=== PATIENT | male | born 1975 | race Caucasian/White ===

== ENCOUNTER 2017-06-17 22:39 | Inpatient (IN) ==
--- NOTE | 2017-06-17 23:18 | Emergency Department Note ---
Disposition Clinical Impression: Suicidal ideation Disposition: Admitted As Inpatient Condition: Fair Time of Disposition: 04:00 Psych HPI - General Chief Complaint: ED Psychiatric Symptoms Stated Complaint: SI Time Seen by Provider: 06/17/17 22:43 Source: patient Limitations: no limitations Nursing Notes Reviewed: Yes Vital Signs Reviewed: Yes - History of Present Illness HPI Narrative: 41-year-old male history of IV drug abuse, schizoaffective disorder, bipolar presents to the emergency department for suicidal ideation. He has been having thoughts of hurting self or past several days which includes shooting himself in the head or overdosing. He states he has been clean from IV drugs for several months now. Is currently undergoing Suboxone treatment since 2013. 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 He has required prior psychiatric hospitalizations in the past. He has had prior suicide attempts. States he is little paranoid believing other people are out to get him. This is confirmed with his who is in the examination room with him. He denies any auditory or visual hallucinations. Denies any alcohol use today. Denies any illicit drug use. He has been without any of his psychiatric medications for several years now due to his current Suboxone treatment. Denies any other complaints such as fever, recent illness, chest pain, shortness of breath, abdominal pain. Pt complaint: suicidal ideation - Related Data Home Medications Medication Instructions Recorded Confirmed Buprenorphine HCl/Naloxone HCl 1 tab SL BID 06/18/17 06/18/17 [Buprenorphin-Naloxon 8-2 mg Sl] Allergies Allergy/AdvReac Type Severity Reaction Status Date / Time Bee Pollen Allergy Anaphylaxis Verified 06/17/17 22:45 moxifloxacin [From Avelox] Allergy Vomiting Verified 06/17/17 22:45 acetaminophen AdvReac Itching Verified 06/17/17 22:45 [From Tylenol-Codeine #3] codeine AdvReac Itching Verified 06/17/17 22:45 All systems ED: reviewed and negative except as stated. Review of Systems: As Per HPI Constitutional: Denies: fever, chills Cardiovascular: Denies: chest pain Respiratory: Denies: cough, dyspnea Gastrointestinal: Denies: abdominal pain, nausea, vomiting Genitourinary: Denies: urgency, dysuria Musculoskeletal: Denies: back pain, neck pain Integumentary: Denies: rash, abrasion, lesions Neurological: Denies: headache Psychiatric: Reports: depression, suicidal thoughts, other (paranoia). Denies: anxiety, homicidal thoughts Endocrine: Denies: fatigue Past Medical History - Past Medical History Attestation: Yes The following information was validated with the patient. Source: patient Medical history: Reports: asthma, COPD Psychiatric history: Reports: anxiety, depression - Social History Smoking Status: Current every day smoker Alcohol use: Reports: rarely Drug use: Reports: none Physical Exam - General Limitations: no limitations General appearance: alert, in no apparent distress, anxious - Head Head exam: atraumatic, normocephalic, normal inspection - Eye Eye exam: Present: normal appearance, PERRL, EOMI - ENT ENT exam: normal exam, normal oropharynx, mucous membranes moist - Neck Neck exam: Present: normal inspection, full ROM, trachea midline - Chest Chest inspection: Present: normal inspection, symmetric chest wall rise - Respiratory Respiratory exam: Present: normal lung sounds bilaterally - Cardiovascular Cardiovascular exam: Present: regular rate, normal rhythm, normal heart sounds - Abdominal Exam Abdominal exam: Present: soft, Non-Tender, normal bowel sounds. Absent: tenderness, distention, guarding, rebound, rigidity - Extremities Exam Extremities exam: Present: normal inspection, full ROM, normal capillary refill. Absent: tenderness, pedal edema, calf tenderness - Back Exam Back exam: Present: normal inspection, full ROM. Absent: tenderness, vertebral tenderness - Neurological Exam Neurological exam: Present: alert, oriented X3, normal gait - Psychiatric Psychiatric exam: Present: depressed, anxious, flat affect, suicidal ideation - Skin Skin exam: Present: warm, dry, intact, normal color, other (Old track carrie in the right AC) Course Course Narrative: 41-year-old male history of IV drug abuse, currently undergoing Suboxone treatment presents for suicidal ideation. Thoughts of shooting himself in the head or overdosing for past several days. This is the 1st time his has heard of this. He has had prior suicide attempts. Prior psychiatric hospitalizations. He denies overdosing on any medications. Is otherwise in no acute distress. Exam is otherwise unremarkable. He is very cooperative and would like evaluation here. Will get medical clearance. - Reevaluation(s) Reevaluation #1: 1A called, medically cleared Time: 01:35 Reevaluation #2: [facility] psychiatry service consulted and evaluated patient in the emergency department and patient is being admitted to the [address] psychiatry unit. Vital Signs Temperature 98.1 F 06/17/17 22:39 Pulse Rate 91 06/17/17 22:39 Respiratory Rate 16 06/17/17 22:39 Blood Pressure 151/101 06/17/17 22:39 O2 Sat by Pulse Oximetry 97 06/17/17 22:39 Temperature 98.2 F 06/18/17 03:12 Pulse Rate 76 06/18/17 03:12 Respiratory Rate 16 06/18/17 03:12 Blood Pressure 125/86 06/18/17 03:12 O2 Sat by Pulse Oximetry 97 06/17/17 22:39 Oxygen Delivery Oxygen Delivery Room Air Psych - Lab Data Result diagrams: 06/18/17 00:50 06/18/17 00:50 Lab Results 06/17/17 06/17/17 06/17/17 Range/Units 23:00 23:15 23:18 WBC (4.3-11.1) K/mcL RBC (4.19-5.50) M/mcL Hgb (12.9-16.9) g/dL Hct (37.5-50.1) % MCV (83.0-100.0) fL MCH (28.0-33.3) pg MCHC (31.6-35.5) g/dL RDW (11.5-14.5) % Plt Count (140-400) K/mcL MPV (9.4-12.4) fL Immature Gran % (0-4) % Seg Neutrophils % % Lymphocytes % % Monocytes % % Eosinophils % % Basophils % % Neutrophils # (1.6-8.9) K/mcL Lymphocytes # (0.6-4.6) K/mcL Monocytes # (0.0-1.3) K/mcL Eosinophils # (0.0-0.6) K/mcL Basophils # (0.0-0.2) K/mcL Sodium (136-145) mEq/L Potassium (3.5-4.5) mEq/L Chloride (98-109) mEq/L Carbon Dioxide (19-29) mEq/L BUN (8-26) mg/dL Creatinine (0.72-1.25) mg/dL Est GFR ( Amer) (> 60) Est GFR (Non-Af Amer) (> 60) BUN/Creatinine Ratio (6-26) Glucose (70-99) mg/dL Calculated Osmolality (280-300) Calcium (8.6-10.8) mg/dL Urine Color Dark Yellow (Yellow) Urine Clarity Clear (Clear) Urine pH 6.5 (5.0-8.0) pH Units Ur Specific [place] > 1.030 H (1.010-1.025) Urine Protein Negative (Neg-Trace) mg/dL Urine Glucose (UA) Normal (Normal) mg/dL Urine Ketones Negative (Negative) mg/dL Urine Blood Negative (Negative) Urine Nitrite Negative (Negative) Urine Bilirubin Small H (Negative) Urine Urobilinogen Normal (Normal) mg/dL Ur Leukocyte Esterase Negative (Negative) Salicylates (15-30) mg/dL Urine Opiates Screen Negative (Rsfzgg=870) ng/mL Acetaminophen (10-30) mcg/mL Ur Barbiturates Screen Negative (Yyfmxt=977) ng/mL Ur Phencyclidine Scrn Negative (Cutoff=25) ng/mL Ur Amphetamines Screen Negative (Aaajpr=5891) ng/mL U Benzodiazepines Scrn Negative (Fiahql=088) ng/mL Urine Cocaine Screen Negative (Cutoff= 300) ng/mL U Marijuana (THC) Screen Negative (Cutoff = 50) ng/mL Ethyl Alcohol (0-10) mg/dL Specimen Rejected Volume 06/18/17 06/18/17 Range/Units 00:50 00:50 WBC 11.1 (4.3-11.1) K/mcL RBC 4.98 (4.19-5.50) M/mcL Hgb 15.2 (12.9-16.9) g/dL Hct 44.2 (37.5-50.1) % MCV 88.8 (83.0-100.0) fL MCH 30.5 (28.0-33.3) pg MCHC 34.4 (31.6-35.5) g/dL RDW 13.2 (11.5-14.5) % Plt Count 219 (140-400) K/mcL MPV 10.6 (9.4-12.4) fL Immature Gran % 0.7 (0-4) % Seg Neutrophils % 61.9 % Lymphocytes % 31.0 % Monocytes % 5.2 % Eosinophils % 0.9 % Basophils % 0.3 % Neutrophils # 6.8 (1.6-8.9) K/mcL Lymphocytes # 3.4 (0.6-4.6) K/mcL Monocytes # 0.6 (0.0-1.3) K/mcL Eosinophils # 0.1 (0.0-0.6) K/mcL Basophils # 0.0 (0.0-0.2) K/mcL Sodium 138 (136-145) mEq/L Potassium 3.6 (3.5-4.5) mEq/L Chloride 104 (98-109) mEq/L Carbon Dioxide 24 (19-29) mEq/L BUN 10 (8-26) mg/dL Creatinine 0.80 (0.72-1.25) mg/dL Est GFR ( Amer) > 60 (> 60) Est GFR (Non-Af Amer) > 60 (> 60) BUN/Creatinine Ratio 13 (6-26) Glucose 104 H (70-99) mg/dL Calculated Osmolality 285 (280-300) Calcium 9.6 (8.6-10.8) mg/dL Urine Color (Yellow) Urine Clarity (Clear) Urine pH (5.0-8.0) pH Units Ur Specific [place] (1.010-1.025) Urine Protein (Neg-Trace) mg/dL Urine Glucose (UA) (Normal) mg/dL Urine Ketones (Negative) mg/dL Urine Blood (Negative) Urine Nitrite (Negative) Urine Bilirubin (Negative) Urine Urobilinogen (Normal) mg/dL Ur Leukocyte Esterase (Negative) Salicylates < 5.0 L (15-30) mg/dL Urine Opiates Screen (Kbsbgd=240) ng/mL Acetaminophen < 1.0 L (10-30) mcg/mL Ur Barbiturates Screen (Meaykj=778) ng/mL Ur Phencyclidine Scrn (Cutoff=25) ng/mL Ur Amphetamines Screen (Kjalfh=3035) ng/mL U Benzodiazepines Scrn (Uqjehm=137) ng/mL Urine Cocaine Screen (Cutoff= 300) ng/mL U Marijuana (THC) Screen (Cutoff = 50) ng/mL Ethyl Alcohol < 10 (0-10) mg/dL Specimen Rejected Psychiatric Medical Clearance - Medical Clearance Checklist Medical History: No Social History Section defined Current Vitals: Last Vital Signs Temp 98.2 F 06/18/17 03:12 Pulse 76 11/24/17 03:12 Resp 16 06/18/17 03:12 BP 125/86 06/18/17 03:12 Pulse Ox 97 06/17/17 22:39 Psychiatric Lab Panel: Drug Levels and Toxicity 06/17/17 06/18/17 23:00 00:50 Urine Opiates Screen Negative Acetaminophen < 1.0 L Ur Barbiturates Screen Negative Ur Phencyclidine Scrn Negative Ur Amphetamines Screen Negative U Benzodiazepines Scrn Negative Urine Cocaine Screen Negative U Marijuana (THC) Screen Negative Ethyl Alcohol < 10 Abnormal Labs: Abnormal lab results Glucose 104 mg/dL (70-99) H 06/18/17 00:50 Ur Specific [place] > 1.030 (1.010-1.025) H 06/17/17 23:18 Urine Bilirubin Small (Negative) H 06/17/17 23:18 Salicylates < 5.0 mg/dL (15-30) L 06/18/17 00:50 Acetaminophen < 1.0 mcg/mL (10-30) L 06/18/17 00:50 Statement of Medical Clearance: I have evaluated the patient, reviewed diagnostic information, and certify that the patient's medical condition is sufficiently stable that transfer to the psychiatric unit does not pose a significant risk of deterioration. Attestation Statement - Attestation Attestation: I, Alvarez Jones MD, personally evaluated this patient and discussed their management with the resident physician. I reviewed the resident's note and agree with the documented findings, medical decision making, and plan of care. 41-year-old male presents to the emergency department complaining of suicidal ideation. He also complains of severe paranoia. Similar problems in the past. On examination patient is a well-developed well-nourished male in no acute distress. He is alert and oriented 3. He is calm and cooperative. There is no cyanosis or diaphoresis. Breath sounds are clear and equal bilaterally. Heart regular rate and rhythm. Abdomen soft and nontender with normal bowel sounds. No gross focal neurological deficits. Labs reviewed. [address] psychiatry service consulted and evaluated patient in the emergency department and patient is being admitted to the [address] psychiatry unit.
[2017-06-17 23:28] LABS: Bilirubin,Urine Small (Negative); Blood,Urine Negative (Negative); Clarity,Urine Clear (Clear); Color,Urine Dark Yellow (Yellow); Glucose,Urine (UA) Normal (Normal); Ketones,Urine Negative (Negative); Leukocyte Esterase,Urine Negative (Negative); Nitrite,Urine Negative (Negative); PH,Urine 6.5 pH Units (5.0-8.0); Protein,Urine Negative (Neg-Trace); Specific Gravity,Urine > 1.030 (1.010-1.025); Urobilinogen,Urine Normal (Normal)
[2017-06-17 23:34] LABS: Amphetamine Screen,Urine Negative ng/mL (Cutoff=1000); Barbiturate Screen,Urine Negative ng/mL (Cutoff=200); Benzodiazepines Screen,Urine Negative ng/mL (Cutoff=200); Cannabinoid Screen,Urine Negative ng/mL (Cutoff = 50); Cocaine Screen,Urine Negative ng/mL (Cutoff= 300); Opiate Screen,Urine Negative ng/mL (Cutoff=300); Phencyclidine Screen,Urine Negative ng/mL (Cutoff=25)
[2017-06-18 01:06] LABS: Basophils % 0.3 %; Eosinophils # 0.1 K/mcL (0.0-0.6); Eosinophils % 0.9 %; Hematocrit 44.2 % (37.5-50.1); Hemoglobin 15.2 g/dL (12.9-16.9); Immature Granulocytes % 0.7 % (0-4); Lymphocytes # 3.4 K/mcL (0.6-4.6); Mean Corpuscular HGB Conc 34.4 g/dL (31.6-35.5); Mean Corpuscular Hemoglobin 30.5 pg (28.0-33.3); Mean Corpuscular Volume 88.8 fL (83.0-100.0); Mean Platelet Volume 10.6 fL (9.4-12.4); Monocytes # 0.6 K/mcL (0.0-1.3); Monocytes % 5.2 %; Neutrophils # 6.8 K/mcL (1.6-8.9); Platelet Count 219 K/mcL (140-400); Red Blood Count 4.98 M/mcL (4.19-5.50); Red Cell Distribution Width 13.2 % (11.5-14.5); Segmented Neutrophils % 61.9 %
[2017-06-18 01:19] LABS: BUN/Creatinine Ratio 13 (6-26); Blood Urea Nitrogen 10 mg/dL (8-26); Calcium 9.6 mg/dL (8.6-10.8); Carbon Dioxide 24 mEq/L (19-29); Chloride 104 mEq/L (98-109); Glucose 104 mg/dL (70-99); Osmolality,Calculated 285 (280-300); Potassium 3.6 mEq/L (3.5-4.5); Sodium 138 mEq/L (136-145); eGFR For African Americans > 60 (> 60); eGFR For Non-African Americans > 60 (> 60)
[2017-06-18 01:22] LABS: Acetaminophen < 1.0 mcg/mL (10-30); Ethanol < 10 mg/dL (0-10); Salicylate < 5.0 mg/dL (15-30)
[2017-06-18] MEDS ORDERED: Ziprasidone 20 MG CAPSULE PO ONE (02:50)
[2017-06-18] MEDS ORDERED: Mag Hydrox/Al Hydrox/Simeth 30 ML UDC PO PRN (04:02)
[2017-06-18] MEDS ORDERED: traZODone 50 MG TABLET PO PRN (04:02)
[2017-06-18] MEDS ORDERED: hydrOXYzine pamoate 25 MG CAPSULE PO PRN (04:02)
[2017-06-18] MEDS ORDERED: *HR* LORazepam 2 MG/ML VIAL IM PRN (04:02)
[2017-06-18] MEDS ORDERED: Haloperidol Lactate 5 MG/ML VIAL IM PRN (04:02)
[2017-06-18] MEDS ORDERED: *HR* LORazepam 1 MG TABLET PO PRN (04:02)
[2017-06-18] MEDS ORDERED: Ibuprofen 400 MG TABLET PO PRN (04:02)
[2017-06-18] MEDS ORDERED: MOM Conc 10 ML UD.LIQ PO PRN (04:02)
[2017-06-18] MEDS ORDERED: Nicotine 2 MG GUM BC PRN (04:02)
--- NOTE | 2017-06-18 10:47 | Psychiatry History & Physical ---
Date of Encounter: 06/18/17 Time of Encounter: 10:40 History of Present Illness Patient Stated Chief Complaint: suicidal ideation, paranoia Medicare Admission Attestation: For traditional Medicare patients the provided hospital inpatient services are reasonable and necessary and in the case of services not specified as inpatient -only under 42 CFR 419.22 (n), that they are appropriately provided as inpatient services in accordance 42 CFR 412.3. For Critical Access Hospital the patient may reasonably be expected to be discharged or transferred to a hospital within 96 hours after admission to the Critical Access Hospital. History of Present Illness: Mr. Barbosa is a 41 year old male who presented to the ER with depression, anxiety , SI and paranoia. Reports lately he has been fearful of everything. States his diagnosis is Schizoaffective Disorder. States he was taking Invega and other meds he cannot remember the names of but stopped them and stopped seeing his psychiatrist earlier this year. States the Invega helped him. Discussed restarting it and an antidepressant today and Mervin was agreeable. He thought Zoloft helped him in the past when he was given options so will start there. Mervin reports he is physically healthy. History of substance abuse but has been clean for a while and tox screen negative. Only home med is Suboxone. Lives with his so she should be able to provide staff with more info and any safety issues she has. Client reports he has a history of suicide attempts via overdose and shooting self but "the bullets didn't go off." Thinks he has been psychiatrically hospitalized close to a dozen times. No obvious signs of psychosis on exam but client seemed very tired and did not make much eye contact. Responses to questions were limited. Past Med Surg Social Fam HX - Past Medical History Medical history: asthma, COPD - Past Psychiatric History Psychiatric history: Reports: bipolar, prior suicide attempt, schizophrenia, previous psychiatric hospitalization Family psychiatric history: Unknown Family History of Suicide: Unknown - Social History Smoking Status: Current every day smoker Smokeless Tobacco Status: Yes Alcohol use: rarely Drug use: none - Family History Mother Hx Family Cancer: Yes Medications & Allergies Buprenorphine HCl/Naloxone HCl [Buprenorphin-Naloxon 8-2 mg Sl] 1 tab SL BID [History] 3 Allergy/AdvReac Type Severity Reaction Status Date / Time Bee Pollen Allergy Anaphylaxis Verified 06/17/17 22:45 moxifloxacin [From Avelox] Allergy Vomiting Verified 06/17/17 22:45 acetaminophen AdvReac Itching Verified 06/17/17 22:45 [From Tylenol-Codeine #3] codeine AdvReac Itching Verified 06/17/17 22:45 Review of Systems Constitutional: Denies: fever, chills, weakness, weight change Eyes: Denies: eye pain, vision change Ears, Nose, Throat: Denies: ear pain, throat pain, dental pain, hearing loss, congestion Cardiovascular: Denies: chest pain, palpitations, dyspnea on exertion Respiratory: Denies: cough, dyspnea, wheezes Gastrointestinal: Denies: abdominal pain, nausea, vomiting, diarrhea, constipation Genitourinary male: Denies: urgency, dysuria, frequency, genital lesions Genitourinary female: Denies: urgency, dysuria, frequency, abnormal menses, dyspareunia Musculoskeletal: Denies: joint swelling, joint pain Integumentary: Denies: rash, lesions, pruritus Neurological: Denies: headache, weakness, numbness, memory loss Endocrine: Denies: fatigue, heat or cold intolerance Hematologic/Lymphatic: Denies: easy bruising, lymphadenopathy Allergic/Immunologic: Denies: urticaria, itchy eyes Mental Status Exam Patient orientation: Yes Person, Yes Time, Yes Place Level of alertness: Alert Patient appearance: Appropriate Behavior: calm, cooperative Psychomotor activity: Normal Eye contact: Minimal Contact Mood description: Depressed Affect description: congruent with mood Speech pattern: Normal rate, Normal rhythm, Normal tone Speech volume: Normal Thought process: Linear Thought content: Yes Suicidal ideation, No Homicidal ideation, No Overt delusions Perceptual disturbances: No Auditory hallucinations, No Visual hallucinations Attention span: Capable of Focused Attention Memory description: Grossly Intact Patient reliability: Questionable Historian Intelligence estimate: Average Judgment: Limited Insight: Partial Exam - HEENT Head exam IM: Present: atraumatic Eye exam IM: Present: EOMI ENT exam IM: Present: mucous membranes moist - Neurological Neurological exam IM: Present: alert, oriented X3 - Respiratory Respiratory exam IM: Present: CTAB - GI/Abdominal GI/Abdominal exam IM: Present: normal bowel sounds - Extremities Extremities exam IM: Present: full ROM - Skin Skin exam IM: Present: normal color Results - Vital Signs Vital signs: Temp Pulse Resp BP Pulse Ox 98.2 F 76 16 125/86 97 06/18/17 03:12 11/24/17 03:12 06/18/17 03:12 06/18/17 03:12 06/17/17 22:39 - Labs Labs: Laboratory Last Values WBC 11.1 K/mcL (4.3-11.1) 06/18/17 00:50 RBC 4.98 M/mcL (4.19-5.50) 06/18/17 00:50 Hgb 15.2 g/dL (12.9-16.9) 06/18/17 00:50 Hct 44.2 % (37.5-50.1) 06/18/17 00:50 MCV 88.8 fL (83.0-100.0) 06/18/17 00:50 MCH 30.5 pg (28.0-33.3) 06/18/17 00:50 MCHC 34.4 g/dL (31.6-35.5) 06/18/17 00:50 RDW 13.2 % (11.5-14.5) 06/18/17 00:50 Plt Count 219 K/mcL (140-400) 06/18/17 00:50 MPV 10.6 fL (9.4-12.4) 06/18/17 00:50 Immature Gran % 0.7 % (0-4) 06/18/17 00:50 Seg Neutrophils % 61.9 % 06/18/17 00:50 Lymphocytes % 31.0 % 06/18/17 00:50 Monocytes % 5.2 % 06/18/17 00:50 Eosinophils % 0.9 % 06/18/17 00:50 Basophils % 0.3 % 06/18/17 00:50 Neutrophils # 6.8 K/mcL (1.6-8.9) 06/18/17 00:50 Lymphocytes # 3.4 K/mcL (0.6-4.6) 06/18/17 00:50 Monocytes # 0.6 K/mcL (0.0-1.3) 06/18/17 00:50 Eosinophils # 0.1 K/mcL (0.0-0.6) 06/18/17 00:50 Basophils # 0.0 K/mcL (0.0-0.2) 06/18/17 00:50 Sodium 138 mEq/L (136-145) 06/18/17 00:50 Potassium 3.6 mEq/L (3.5-4.5) 06/18/17 00:50 Chloride 104 mEq/L (98-109) 06/18/17 00:50 Carbon Dioxide 24 mEq/L (19-29) 06/18/17 00:50 BUN 10 mg/dL (8-26) 06/18/17 00:50 Creatinine 0.80 mg/dL (0.72-1.25) 06/18/17 00:50 Est GFR ( Amer) > 60 (> 60) 06/18/17 00:50 Est GFR (Non-Af Amer) > 60 (> 60) 06/18/17 00:50 BUN/Creatinine Ratio 13 (6-26) 06/18/17 00:50 Glucose 104 mg/dL (70-99) H 06/18/17 00:50 Calculated Osmolality 285 (280-300) 06/18/17 00:50 Calcium 9.6 mg/dL (8.6-10.8) 06/18/17 00:50 Urine Color Dark Yellow (Yellow) 06/17/17 23:18 Urine Clarity Clear (Clear) 06/17/17 23:18 Urine pH 6.5 pH Units (5.0-8.0) 06/17/17 23:18 Ur Specific [place] > 1.030 (1.010-1.025) H 06/17/17 23:18 Urine Protein Negative mg/dL (Neg-Trace) 06/17/17 23:18 Urine Glucose (UA) Normal mg/dL (Normal) 06/17/17 23:18 Urine Ketones Negative mg/dL (Negative) 06/17/17 23:18 Urine Blood Negative (Negative) 06/17/17 23:18 Urine Nitrite Negative (Negative) 06/17/17 23:18 Urine Bilirubin Small (Negative) H 06/17/17 23:18 Urine Urobilinogen Normal mg/dL (Normal) 06/17/17 23:18 Ur Leukocyte Esterase Negative (Negative) 06/17/17 23:18 Salicylates < 5.0 mg/dL (15-30) L 06/18/17 00:50 Urine Opiates Screen Negative ng/mL (Mrafbk=539) 06/17/17 23:00 Acetaminophen < 1.0 mcg/mL (10-30) L 06/18/17 00:50 Ur Barbiturates Screen Negative ng/mL (Fsauid=967) 06/17/17 23:00 Ur Phencyclidine Scrn Negative ng/mL (Cutoff=25) 06/17/17 23:00 Ur Amphetamines Screen Negative ng/mL (Bxltwd=9341) 06/17/17 23:00 U Benzodiazepines Scrn Negative ng/mL (Pdowbb=057) 06/17/17 23:00 Urine Cocaine Screen Negative ng/mL (Cutoff= 300) 06/17/17 23:00 U Marijuana (THC) Screen Negative ng/mL (Cutoff = 50) 06/17/17 23:00 Ethyl Alcohol < 10 mg/dL (0-10) 06/18/17 00:50 Specimen Rejected Volume 06/17/17 23:15 Assessment and Plan (1) Schizoaffective disorder, bipolar type Current visit: Yes Status: Acute Plan: Admit inpatient for safety and stabilization, Close observation, Suicide Precautions per unit protocol, Encourage participation in unit milieu, Group Therapy, Monitor sleep, Monitor appetite Risks, benefits, side effects, alternatives discussed w/pt: Yes Patient agreeable to treatment: Yes Plans for Post Hospital Care: Home Estimated Length of Stay (Days): 4
[2017-06-19 08:51] VITALS: BP 121/76
--- NOTE | 2017-06-19 10:23 | Discharge Summary ---
Date of Encounter: 06/19/17 Time of Encounter: 10:15 Diagnosis - Discharge Diagnosis (1) Schizoaffective disorder, bipolar type Status: Acute Medications - Discharge Medications Prescriptions: Paliperidone [Invega] 3 mg PO DAILY #28 tab.er.24 Sertraline [Zoloft] 50 mg PO DAILY #28 tablet Buprenorphine HCl/Naloxone HCl [Buprenorphin-Naloxon 8-2 mg Sl] 1 tab SL BID [History] Paliperidone [Invega] 3 mg PO DAILY #28 tab.er.24 06/19/17 [Rx] Sertraline [Zoloft] 50 mg PO DAILY #28 tablet 06/19/17 [Rx] 3 Allergy/AdvReac Type Severity Reaction Status Date / Time Bee Pollen Allergy Anaphylaxis Verified 06/17/17 22:45 moxifloxacin [From Avelox] Allergy Vomiting Verified 06/17/17 22:45 acetaminophen AdvReac Itching Verified 06/17/17 22:45 [From Tylenol-Codeine #3] codeine AdvReac Itching Verified 06/17/17 22:45 Provider Date of admission: 06/18/17 03:13 Primary care physician: PCP NONE Consults: 06/18/17 03:58 Consult to Pastoral Services [CONS] Routine Comment: Discharging clinician: Karen Morales Assessment and Plan - Patient/Caregiver Discharge Instructions Activity: resume usual activities as tolerated Diet: regular diet - Follow up Plan Follow up with: NONE,PCP [Primary Care Provider] - Functional capacity at discharge: independent ambulation Overall status at discharge: Stable Disposition: Home, Self-Care Hospital Course Hospital course: Mr. Barbosa is a 41 year old male who was admitted secondary to SI and paranoia. Had been off meds for several months. Restated on Invega and Zoloft with good clinical benefit. Feels ready to go after two nights on the unit. States he just needed to be in a controlled environment to restart the meds. Denying SI. Maintaining good eye contact today. Staff report he did not sleep particularly well last night but he looks far more alert to this business writer. No evidence of psychosis. Staff called his this morning and she has no safety concerns about Mervin returning home. She reported all the weapons were removed from the home a long time ago. Mervin gave this business writer the information on whom he followed with as an outpatient and staff will try to set him up with appointments on Wednesday and give him a call. Per nursing staff Mervin has been far more concerned with coffee and snacks than anything else in the hospital and they see no red flags for discharge at this time either. - Time Spent with Patient Total time spent providing and/or coordinating discharge services: Quality - Multiple Antipsychotics Patient discharged on 2 or more antipsychotic medications: No Procedures - Procedures Procedures: Medication Management, Crisis Stabilization, Supportive Therapy, Group Therapy Mental Status Exam - Mental Status Exam Patient orientation: Yes Person, Yes Time, Yes Place Level of alertness: Alert Patient appearance: Appropriate Behavior: calm, cooperative Psychomotor activity: Normal Eye contact: Maintains Eye Contact Mood description: Euthymic/stable Affect description: blunted Speech pattern: Normal rate, Normal rhythm, Normal tone Speech Volume: Normal Thought process: Linear, Goal Oriented Thought Content: No Suicidal ideation, No Homicidal ideation, No Overt delusions Perceptual Disturbances: No Auditory hallucinations, No Visual hallucinations Judgment: Fair Insight: Partial
== END 2017-06-19 11:15 | disposition home or self-care (01) | DRG 750 ==
LOC: EMEROO 22:39 → 1ANU 06-18 03:13
PROVIDERS: ADMIT Psychiatry & Neurology Psychiatry; ATTEND Psychiatry & Neurology Psychiatry